=== PATIENT | male | born 1995 | race African-American/Black ===

== ENCOUNTER 2021-02-16 11:40 | Emergency (ER) | payer MEDICAID | END 2021-02-16 13:47 | disposition left against medical advice (07) | LOC: ER 11:40 | DX: Z53.21 Procedure and treatment not carried out due to patient leaving prior to being seen by health care provider (principal) ==

== ENCOUNTER 2023-06-19 08:36 | Emergency (ER) | payer MEDICAID, OTHER ==
[~2023-06-19] VITALS: Ht 175.3 cm; Wt 68.0 kg
[2023-06-19 09:02] VITALS: BP 121/72; PULSE 77; RESP 16; TEMP 98.6; O2SAT 100
[2023-06-19] MEDS ORDERED: CEFTRIAXONE SODIUM 500 MG/VIAL IM ONE (10:30)
[2023-06-19 10:44] LABS: CLARITY URINE CLOUDY (CLEAR); COLOR URINE DARK YELLOW (YELLOW); GLUCOSE URINE NEGATIVE (NEGATIVE); KETONES URINE NEGATIVE (NEGATIVE); LEUKOCYTE ESTERASE URINE 2+ (NEGATIVE); NITRITE URINE NEGATIVE (NEGATIVE); OCCULT BLOOD URINE TRACE (NEGATIVE); PH URINE 6.5 (4.5-8.0); PROTEIN URINE 1+ (NEGATIVE); SPECIFIC GRAVITY URINE 1.021 (1.005-1.030)
[2023-06-19 10:57] LABS: MUCUS URINE TRACE /lpf (NONE/TRACE); SQUAMOUS EPITHELIAL CELL URINE 1+ /lpf (RARE/1+)
[2023-06-19 10:58] LABS: BACTERIA URINE 1+
[2023-06-19 11:00] LABS: WBC URINE 50-100 /hpf (0-2)
[2023-06-19] MEDS ORDERED: PHEN-815 MT (11:11)
[2023-06-19] MEDS ORDERED: DOXY100C5 MT (11:11)
[2023-06-23 04:12] LABS: CHLAMYDIA TRACHOMATIS NAA Negative (Negative); NEISSERIA GONORRHOEAE NAA Negative (Negative)
== END 2023-06-19 11:26 | disposition home or self-care (01) ==
LOC: ER 08:36
DX: N39.0 Urinary tract infection, site not specified (principal); R59.0 Localized enlarged lymph nodes; F12.90 Cannabis use, unspecified, uncomplicated; Z11.3 Encounter for screening for infections with a predominantly sexual mode of transmission
CPT/HCPCS: 87491; 87591; 81003; 82962; 87086; 96372; 99283; J0696; Z7610

== ENCOUNTER 2024-02-15 10:25 | Emergency (ER) | payer OTHER ==
[~2024-02-15] VITALS: Ht 175.3 cm; Wt 58.0 kg
[~2024-02-15 10:25] MED LIST: DOXY100C5 MT; PHEN-815 MT
[2024-02-15 11:15] VITALS: O2SAT 100
[2024-02-15] MEDS: HYDROCODONE/ACETAMINOPHEN 5/325MG TABLET PO ONE (11:30)
[2024-02-15] MEDS ORDERED: TETANUS, DIPHTHERIA, PERTUSSIS VAC/PF 0.5ML (>10YR OLD) IM ONE (11:30)
[2024-02-15 12:37] LABS: BASOPHILS % 0.5 % (0.0-2.0); HEMATOCRIT. 43.6 % (42.0-52.0); HEMOGLOBIN. 14.8 g/dL (14.0-18.0); LYMPHOCYTES % 16.6 % (20.0-50.0); MEAN CORPUSCULAR HEMOGLOBIN 30.2 pg (28.0-32.0); MEAN CORPUSCULAR HGB CONC 33.9 g/dL (31.0-37.0); MEAN CORPUSCULAR VOLUME 89.1 fL (80.0-94.0); MEAN PLATELET VOLUME 6.9 fl (7.4-10.4); NEUTROPHILS % 76.9 % (40.0-76.0); PLATELET 377 x1000/uL (130-400); RED CELL DISTRIBUTION WIDTH 13.1 % (11.6-14.6); WHITE BLOOD COUNT 12.5 x1000/uL (4.5-11.0)
[2024-02-15 12:51] LABS: CHLORIDE 104 mEq/L (98-107); SODIUM 137 mEq/L (136-145)
[2024-02-15 12:52] LABS: CALCIUM 9.6 mg/dL (8.7-10.4); CARBON DIOXIDE 23 mEq/L (21-32)
[2024-02-15 12:57] LABS: CREATININE 0.8 mg/dL (0.6-1.3); ETHANOL BLOOD 122 mg/dL (<10); GLUCOSE 102 mg/dL (70-105)
[2024-02-15 12:59] LABS: ACETAMINOPHEN 3 ug/mL (10-30)
[2024-02-15 13:00] LABS: UREA NITROGEN BLOOD < 5 mg/dL (9-23)
[2024-02-15 13:20] LABS: CLARITY URINE CLOUDY (CLEAR); COLOR URINE YELLOW (YELLOW); GLUCOSE URINE NEGATIVE (NEGATIVE); KETONES URINE TRACE (NEGATIVE); LEUKOCYTE ESTERASE URINE 1+ (NEGATIVE); NITRITE URINE NEGATIVE (NEGATIVE); OCCULT BLOOD URINE TRACE (NEGATIVE); PH URINE 5.5 (4.5-8.0); PROTEIN URINE 1+ (NEGATIVE)
[2024-02-15] MEDS: TETANUS, DIPHTHERIA, PERTUSSIS VAC/PF 0.5ML (>10YR OLD) IM ONE (13:30)
[2024-02-15 13:35] LABS: *AMPHETAMINES SCREEN URINE NEGATIVE (NEGATIVE); *BARBITURATES SCREEN URINE NEGATIVE (NEGATIVE); *BENZODIAZEPINES SCREEN URINE NEGATIVE (NEGATIVE); *COCAINE SCREEN URINE NEGATIVE (NEGATIVE); CANNABINOID URINE SCREEN PRESUMPTIVE POSITIVE (NEGATIVE); ECSTASY MDMA SCREEN URINE NEGATIVE (NEGATIVE); METHADONE URINE SCREEN NEGATIVE (NEGATIVE); OPIATES URINE SCREEN NEGATIVE (NEGATIVE); PHENCYCLIDINE URINE SCREEN NEGATIVE (NEGATIVE)
[2024-02-15 14:16] LABS: BACTERIA URINE 3+; MUCUS URINE 3+ /lpf (NONE/TRACE); SQUAMOUS EPITHELIAL CELL URINE 3+ /lpf (RARE/1+)
[2024-02-15 14:18] LABS: WBC URINE 50-100 /hpf (0-2)
[2024-02-15 14:19] LABS: RBC URINE NONE SEEN /hpf (0-2)
[2024-02-15] MEDS: ACETAMINOPHEN 325MG TABLET PO NR (15:30)
[2024-02-15] MEDS: CEFTRIAXONE SODIUM 500MG VIAL IM NR (16:30)
[2024-02-15] MEDS: LORAZEPAM 1MG TABLET PO ONE (16:30)
[2024-02-15] MEDS: LIDOCAINE HCL/EPINEPHRINE 1%-EPI 1:100,000 20 ML VIAL INFIL ONE (17:45)
[2024-02-15] MEDS: DOXYCYCLINE HYCLATE 100MG CAPSULE PO SCH (21:56)
[2024-02-15] MEDS: ACETAMINOPHEN 325MG TABLET PO ONE (22:48)
[2024-02-15] MEDS: CEPHALEXIN 250MG CAPSULE PO SCH (22:48)
[2024-02-16] MEDS: ACETAMINOPHEN 325MG TABLET PO ONE ×2 (06:26→09:45)
[2024-02-16] MEDS: LORAZEPAM 1MG TABLET PO ONE (09:45)
[2024-02-16] MEDS: HYDROCODONE/ACETAMINOPHEN 10/325MG TABLET PO ONE ×2 (15:45→23:24)
[2024-02-16] MEDS: HYDROXYZINE 25MG TABLET PO ONE (16:30)
[2024-02-16] MEDS: HALOPERIDOL LACTATE 5MG/ML VIAL IM ONE (23:24)
[2024-02-17] MEDS: ARIPIPRAZOLE 5MG TABLET PO SCH (09:41)
[2024-02-17] MEDS: ACETAMINOPHEN 325MG TABLET PO ONE ×3 (09:42→20:51)
[2024-02-17 20:30] VITALS: BP 127/85; PULSE 106; RESP 18; TEMP 36.94740; O2SAT 99
== END 2024-02-17 21:49 ==
LOC: ER 10:25
DX: S61.412A Laceration without foreign body of left hand, initial encounter (principal); F31.9 Bipolar disorder, unspecified; F12.90 Cannabis use, unspecified, uncomplicated; Z20.822 Contact with and (suspected) exposure to COVID-19; X58.XXXA Exposure to other specified factors, initial encounter; Y93.89 Activity, other specified; Y92.89 Other specified places as the place of occurrence of the external cause; Y99.8 Other external cause status
CPT/HCPCS: 80305; 80048; 81003; 80307; 80329; 80320; 85025; 87086; 36415; 73120; 73130; 90715; 20520; 90471; 96372 ×2; 99285; 87426; 73660; J0696; J3490; Z7610 ×2; J1630; G0480